=== PATIENT | female | born 1965 | race Caucasian/White ===

== ENCOUNTER → 2016-03-23 | Outpatient (REF) | payer MEDICARE, MEDICAID | LOC: M LAB REF 13:08 | PROVIDERS: ATTEND Internal Medicine Medical Oncology | DX: D50.9 Iron deficiency anemia, unspecified (principal) ==

== ENCOUNTER → 2016-05-04 | Outpatient (REF) | payer MEDICARE, MEDICAID ==
[2016-05-04 14:12] LABS: PERCENT SATURATION 15.1 % (13.2-37.4)
== END ==
LOC: M LAB REF 12:49
PROVIDERS: ATTEND Internal Medicine Medical Oncology
DX: D50.9 Iron deficiency anemia, unspecified (principal)

== ENCOUNTER → 2018-03-22 | Outpatient (REF) | payer MEDICARE, MEDICAID ==
[2018-03-22 14:52] LABS: PERCENT SATURATION 10.8 % (13.2-45.0)
== END ==
LOC: M LAB REF 12:44
PROVIDERS: ATTEND Internal Medicine Nephrology
DX: D50.9 Iron deficiency anemia, unspecified (principal); N39.0 Urinary tract infection, site not specified

== ENCOUNTER → 2020-07-23 | Outpatient (CLI) | payer MEDICARE, MEDICAID ==
[~2020-07-23] MED LIST: ALPR0.5T6 PO; BENA25CA4 PO; CIPR-249 PO; CREO12CA PO; LEXA1TAB2 PO; MELA5TAB47 PO; NITR-67; PERC5TAB12 PO; PRED1TABL PO; VITA500045 PO
== END ==
LOC: M LABSMTC 11:31
PROVIDERS: ATTEND Anesthesiology
DX: Z01.812 Encounter for preprocedural laboratory examination (principal); Z20.822 Contact with and (suspected) exposure to COVID-19

== ENCOUNTER 2020-07-28 13:00 | Day surgery (SDC) | payer MEDICARE, MEDICAID ==
[~2020-07-28] VITALS: Ht 167.6 cm; Wt 63.5 kg
[~2020-07-28 13:00] MED LIST changes: +NS 1,000 ML IV ONE
[2020-07-28] MEDS ORDERED: LIDOCAINE 2% 100MG/5ML SDV (FOR ANES.) As Ordered ONE (14:34)
[2020-07-28] MEDS ORDERED: propofoL 200 MG/20 ML VIAL As Ordered ONE ×2 (14:34→14:43)
[2020-07-28] MEDS ORDERED: fentaNYL 100 MCG/2 ML INJECTION (J3010) As Ordered ONE (14:35)
--- NOTE | 2020-07-28 14:52 | ROOR ---
Patient Name: Soumya Lyon Procedure Date: 07/28/2020 2:36 PM Date of : 1965 Age: 54 Room: [facility] Gender: Female Note Status: Finalized Procedure: Upper GI endoscopy Indications: Familial Adenomatous Polyposis Providers: Brady Leblanc MD Referring MD: Dee Costa MD Requesting Provider: Medicines: Monitored Anesthesia Care Complications: No immediate complications. Procedure: Pre-Anesthesia Assessment: - The heart rate, respiratory rate, oxygen saturations, blood pressure, adequacy of pulmonary ventilation, and response to care were monitored throughout the procedure. The Endoscope was introduced through the mouth, and advanced to the second part of duodenum. The upper GI endoscopy was accomplished without difficulty. The patient tolerated the procedure well. Findings: The Z-line was regular and was found 35 cm from the incisors. No other significant abnormalities were identified in a careful examination of the stomach. The exam of the duodenum was otherwise normal. Impression: - Z-line regular, 35 cm from the incisors. - No specimens collected. - The examination was otherwise normal. Recommendation: - Patient has a contact number available for emergencies. The signs and symptoms of potential delayed complications were discussed with the patient. Return to normal activities tomorrow. Written discharge instructions were provided to the patient. - Resume previous diet. - Discharge patient to home. - Continue present medications. - Return to referring physician. - Repeat upper endoscopy in 2 years for surveillance. - The findings and recommendations were discussed with the patient's family. Procedure Code(s): --- Professional --- 17362, Esophagogastroduodenoscopy, flexible, transoral; diagnostic, including collection of specimen(s) by brushing or washing, when performed (separate procedure) Diagnosis Code(s): --- Professional --- D12.6, Benign neoplasm of colon, unspecified CPT copyright 2019 [employer]. All rights reserved. The codes documented in this report are preliminary and upon high school professional review may be revised to meet current compliance requirements. Brady Leblanc MD Brady Leblanc MD 07/28/2020 2:51:57 PM Electronically signed by Brady Leblanc MD Number of Addenda: 0 Note Initiated On: 07/28/2020 2:36 PM Estimated Blood Loss: Estimated blood loss: none.
[2020-07-28 15:15] VITALS: BP 112/69
== END 2020-07-28 15:15 | disposition home or self-care (01) ==
LOC: M OPP 13:00
PROVIDERS: ATTEND Internal Medicine Gastroenterology
DX: D12.6 Benign neoplasm of colon, unspecified (principal); Z83.71 Family history of colonic polyps; K86.81 Exocrine pancreatic insufficiency; Z80.0 Family history of malignant neoplasm of digestive organs; Z98.84 Bariatric surgery status; Z93.2 Ileostomy status; Z79.891 Long term (current) use of opiate analgesic; Z79.899 Other long term (current) drug therapy
CPT/HCPCS: 43235; J3010

== ENCOUNTER 2022-04-17 09:27 | Day surgery (SDC) | payer MEDICARE, MEDICAID ==
[~2022-04-17] VITALS: Ht 172.7 cm; Wt 66.9 kg
[~2022-04-17 09:27] MED LIST changes: +ALBU8.5H; +AMIT10TA7; +BUSP5TA
[2022-04-17] MEDS ORDERED: propofoL 200 MG/20 ML VIAL As Ordered ONE (10:16)
[2022-04-17] MEDS ORDERED: LIDOCAINE 2% 100MG/5ML SDV (FOR ANES.) As Ordered ONE (10:16)
[2022-04-17 10:54] VITALS: BP 129/78
== END 2022-04-17 11:03 | disposition home or self-care (01) ==
LOC: M OPP 09:27
PROVIDERS: ATTEND Internal Medicine Gastroenterology
DX: D12.6 Benign neoplasm of colon, unspecified (principal); Z15.09 Genetic susceptibility to other malignant neoplasm; Z83.71 Family history of colonic polyps; D50.9 Iron deficiency anemia, unspecified; N18.30 Chronic kidney disease, stage 3 unspecified; F17.200 Nicotine dependence, unspecified, uncomplicated; Z87.442 Personal history of urinary calculi; Z79.51 Long term (current) use of inhaled steroids; Z79.891 Long term (current) use of opiate analgesic; Z79.899 Other long term (current) drug therapy; Z91.048 Other nonmedicinal substance allergy status; Z93.2 Ileostomy status; Z80.0 Family history of malignant neoplasm of digestive organs; Z80.1 Family history of malignant neoplasm of trachea, bronchus and lung; Z90.49 Acquired absence of other specified parts of digestive tract; Z98.84 Bariatric surgery status

== ENCOUNTER 2024-04-21 11:12 | Day surgery (SDC) | payer MEDICARE, MEDICAID ==
[~2024-04-21] VITALS: Ht 172.7 cm; Wt 67.9 kg
[~2024-04-21 11:12] MED LIST changes: +CONS10SO3 PO; +CYAN-1 PO; +D-101000 PO; +HYDR-643 PO; +LEVO330T6 PO; +LIDOCAINE 2% 100MG/5ML SDV (FOR ANES.) As Ordered ONE; -NS 1,000 ML IV ONE; +OXYC1TAB23 PO; +SPIR-10 PO; +ZENP1CAP PO; +fentaNYL 100 MCG/2 ML INJECTION As Ordered ONE; +propofoL 200 MG/20 ML VIAL As Ordered ONE
[2024-04-21 11:49] VITALS: TEMP 96.7
[2024-04-21 12:40] VITALS: BP 106/57; O2SAT 96
== END 2024-04-21 12:51 | disposition home or self-care (01) ==
LOC: M OPP 11:12
PROVIDERS: ATTEND Internal Medicine Gastroenterology
DX: Z15.09 Genetic susceptibility to other malignant neoplasm (principal); Z98.84 Bariatric surgery status; Z88.8 Allergy status to other drugs, medicaments and biological substances; Z79.891 Long term (current) use of opiate analgesic; Z79.899 Other long term (current) drug therapy; Z87.891 Personal history of nicotine dependence
CPT/HCPCS: 43235; J3010